=== PATIENT | male | born 1975 | race Caucasian/White ===

== ENCOUNTER 2023-03-02 06:10 | Day surgery (SDC) | payer OTHER ==
[2023-03-01 11:10] VITALS: BMI 29.2
[2023-03-02] MEDS ORDERED: PROPOFOL 40 ML ONE (08:32)
== END 2023-03-02 09:24 | disposition home or self-care (01) ==
LOC: CSHSDC 06:10
PROVIDERS: ATTEND Internal Medicine Gastroenterology
PROC: 0DJD8ZZ Inspection of Lower Intestinal Tract, Via Natural or Artificial Opening Endoscopic (ICD-10-PCS; principal; 2023-03-02)
DX: Z12.11 Encounter for screening for malignant neoplasm of colon (principal); K57.30 Diverticulosis of large intestine without perforation or abscess without bleeding; K64.9 Unspecified hemorrhoids; I10 Essential (primary) hypertension; E78.5 Hyperlipidemia, unspecified; F10.90 Alcohol use, unspecified, uncomplicated; Z87.891 Personal history of nicotine dependence; Z79.899 Other long term (current) drug therapy
CPT/HCPCS: J2704